=== PATIENT | male | born 1960 | race Caucasian/White ===

== ENCOUNTER 2018-06-05 17:30 | Emergency (ER) | payer OTHER ==
[~2018-06-05] VITALS: Ht 188 cm; Wt 111.1 kg
[~2018-06-05 17:30] MED LIST: DRON400T PO; IBUP200 PO; NEBI10 PO; [UNRECOGNIZED DRUG - CODE]
[2018-06-05 17:50] LABS: BASOPHILS ABSOLUTE AUTO 0.02 K/mm3 (0.00-0.23); BASOPHILS PERCENT AUTO 0 % (0-2); EOSINOPHILS ABSOLUTE AUTO 0.06 K/mm3 (0.00-0.68); EOSINOPHILS PERCENT AUTO 1 % (0-6); Hematocrit 43.8 % (37.0-53.0); Hemoglobin 14.4 g/dL (13.5-17.5); IMMATURE GRAN ABSOLUTE AUTO 0.16 K/mm3 (0.00-0.10); IMMATURE GRAN PERCENT AUTO 2 % (0-1); LYMPHOCYTES ABSOLUTE AUTO 5.53 K/mm3 (0.84-5.20); LYMPHOCYTES PERCENT AUTO 58 % (21-46); MONOCYTES ABSOLUTE AUTO 0.68 K/mm3 (0.16-1.47); MONOCYTES PERCENT AUTO 7 % (4-13); Mean Corpuscular HGB Conc 32.9 g/dL (31.5-36.5); Mean Corpuscular Volume 85 fL (80-100); Mean Platelet Volume 11.6 fL (9.1-12.4); NEUTROPHILS ABSOLUTE AUTO 3.07 K/mm3 (1.96-9.15); NEUTROPHILS PERCENT AUTO 32 % (41-73); Platelet Count 172 K/mm3 (150-400); RDW Coefficient Variation 12.7 % (11.7-14.2); RDW Standard Deviation 39.4 fL (35.1-46.3); Red Blood Cell Count 5.14 M/mm3 (4.30-5.90); White Blood Cell Count 9.52 K/mm3 (4.00-11.30)
[2018-06-05 17:55] LABS: Calcium, Ionized (POC) 1.17 mmol/L (1.10-1.46); Chloride (POC) 104 mmol/L (98-108); Creatinine (POC) 0.9 mg/dL (0.8-1.3); Glucose (ISTAT POC) 162 mg/dL (70-99); Hemoglobin (POC) 14.3 g/dL (13.5-17.5); Potassium (POC) 3.2 mmol/L (3.5-5.5); Sodium (POC) 141 mmol/L (135-148); Total CO2 (POC) 20 mmol/L (21-32)
[2018-06-05 18:01] LABS: PCO2 Arterial 48.7 mmHg (35-45); PO2 Arterial 108 mmHg (80-100); pH Blood Arterial 7.21 (7.35-7.45)
[2018-06-05 18:04] LABS: International Normalized Ratio 1.08; Prothrombin Time Results 11.1 Sec (9.7-11.5)
[2018-06-05 18:17] LABS: Alanine Aminotransfer (ALT/SGP 78 U/L (12-78); Albumin, Blood 3.9 g/dL (3.4-5.0); Albumin/Globulin Ratio 1.1 (0.8-1.8); Alk Phos 106 U/L (50-136); Anion Gap 16 mmol/L (6-16); Aspartate Aminotrans (AST/SGOT 44 U/L (12-37); Bilirubin, Total 0.6 mg/dL (0.1-1.0); Blood Urea Nitrogen 14 mg/dL (8-24); Bun/Creatinine Ratio 15.7 (12.0-20.0); CO2, Blood 18 mmol/L (21-32); Calcium, Blood 8.3 mg/dL (8.5-10.1); Chloride, Blood 106 mmol/L (98-108); Creatinine, Blood 0.89 mg/dL (0.60-1.20); Globulin, Blood 3.5 g/dL (2.2-4.0); Glomerular Filtration Rate >60 (60-); Glucose, Blood 172 mg/dL (70-99); Magnesium, Blood 2.3 mg/dL (1.6-2.4); Sodium, Blood 140 mmol/L (136-145); Total Protein, Blood 7.4 g/dL (6.4-8.2); Troponin I <0.015 ng/mL (0.000-0.040)
[2018-06-05 18:36] LABS: CPK Creatine Kinase 146 U/L (39-308)
[2018-06-05 19:20] LABS: Base Excess Venous -3.7 mmol/L; Bicarbonate Venous 21.1 mmol/L (24.0-30.0); PCO2 Venous 46.4 mmHg (38-42); PO2 Venous 79.4 mmHg (38-42)
[2018-06-05] MEDS ORDERED: Flecainide Ace150 MG PO (20:34)
[2018-06-05] MEDS ORDERED: DILT180 PO (20:34)
== END 2018-06-05 20:20 | disposition short-term general hospital (02) ==
LOC: ER 17:30
PROVIDERS: Emergency Medicine
DX: T75.4XXA Electrocution, initial encounter (principal); I46.8 Cardiac arrest due to other underlying condition; T23.002A Burn of unspecified degree of left hand, unspecified site, initial encounter; T23.001A Burn of unspecified degree of right hand, unspecified site, initial encounter; T21.01XA Burn of unspecified degree of chest wall, initial encounter; I48.91 Unspecified atrial fibrillation; I10 Essential (primary) hypertension; E78.00 Pure hypercholesterolemia, unspecified; Z88.0 Allergy status to penicillin; Z79.899 Other long term (current) drug therapy; W86.8XXA Exposure to other electric current, initial encounter
CPT/HCPCS: 31500; 36415; 36600; 51702; 70450; 72125; 80047; 80053; 82550; 82803; 83690; 83735; 84484; 85014; 85025; 85610; 94002; J3010; J7030

== ENCOUNTER → 2018-06-17 | Outpatient (CLI) | payer OTHER ==
[~2018-06-17] MED LIST changes: +DILT180 PO; +Flecainide Ace150 MG PO
== END | disposition home or self-care (01) ==
LOC: LAB EV 12:45 → LAB SHORT 12:45
DX: S21.1 Open wound of front wall of thorax without penetration into thoracic cavity (principal)
CPT/HCPCS: 87070; 87205

== ENCOUNTER → 2025-01-10 | Outpatient (CLI) | payer OTHER | LOC: LAB 07:59 → LAB SHORT 07:59 | DX: Z87.39 Personal history of other diseases of the musculoskeletal system and connective tissue (principal) | CPT/HCPCS: 84550; 85651 ==